=== PATIENT | female | born 1980 | race Caucasian/White ===

== ENCOUNTER 2019-12-13 13:01 | Emergency (ER) | payer OTHER ==
[2019-12-13] MEDS ORDERED: Ketorolac 60 MG/2 ML SDV IM ONE (13:41)
--- NOTE | 2019-12-13 13:43 | EDM.PDOC ---
ED HPI GENERAL MEDICAL PROBLEM - General Chief Complaint: Lower Extremity Injury/Pain Stated Complaint: RIGHT ANKLE INJURY Time Seen by Provider: 12/13/19 13:38 Source of Information: Reports: Patient, RN Notes Reviewed History Limitations: Reports: No Limitations - History of Present Illness INITIAL COMMENTS - FREE TEXT/NARRATIVE: 39-year-old female presents emergency department a complaint of pain in her right ankle she twisted it earlier today just prior to presentation to the emergency department, she heard a loud pop and now has difficulty bearing weight on that leg Right Ankle Pain Score (Numeric/FACES): 7 - Related Data Allergies Allergy/AdvReac Type Severity Reaction Status Date / Time No Known Allergies Allergy Verified 12/13/19 13:33 Home Meds: Home Meds FLUoxetine HCl [Prozac] 20 mg PO DAILY 12/13/19 [History] Levothyroxine 25 mcg PO ACBREAKFAST 12/13/19 [History] Past Medical History [employer] History: Reports: - Infectious Disease History Infectious Disease History: Reports: Chicken Pox - Past Surgical History GI Surgical History: Reports: Cholecystectomy Social & Family History - Tobacco Use Smoking Status *Q: Never Smoker - Caffeine Use Caffeine Use: Reports: Coffee, Soda, Tea - Recreational Drug Use Recreational Drug Use: No Review of Systems - Review of Systems Review Of Systems: See Below Constitutional: Reports: No Symptoms Musculoskeletal: Reports: Joint Pain (Ankle pain) Skin: Reports: Bruising Neurological: Reports: No Symptoms ED EXAM, GENERAL - Physical Exam Exam: See Below Free Text/Narrative:: Examination the left ankle I do appreciate some edema a small amount of ecchymosis is noted on the lateral aspect over the lateral malleolus pedal pulses +2 she will not tolerate any bit of exam tilt test or drawer test produces pain Exam Limited By: No Limitations General Appearance: Alert, WD/WN, No Apparent Distress ED TRAUMA EXTREMITY PROCEDURES - Splinting Right Lower Extremity Splint Site: Ankle Pre-Procedure NV Status: Normal Post-Procedure NV Status: Normal Splint Material: Fiberglass Splint Design: Stirrup, Posterior Applied & Form Fitted By: Provider, Nurse Provider Post-Splint Application NV Check: NV Status Normal, Good Position Complications: No Course - Vital Signs Last Recorded V/S: Last Vital Signs Temp 97.3 F 12/13/19 13:30 Pulse 72 12/13/19 13:30 Resp 16 12/13/19 13:30 BP 126/75 12/13/19 13:30 Pulse Ox 100 12/13/19 13:30 - Orders/Labs/Meds Meds: Medications Discontinued Medications Generic Name Dose Route Start Last Admin Trade Name South PRN Reason Stop Dose Admin Ketorolac Tromethamine 60 mg 12/13/19 13:41 12/13/19 13:58 Toradol IM 12/13/19 13:42 60 mg ONETIME ONE Administration Departure - Departure Time of Disposition: 15:46 Disposition: Home, Self-Care 01 Condition: Fair Clinical Impression: Fracture of distal end of tibia with fibula Qualifiers: Encounter type: initial encounter Fracture type: closed Laterality: right Qualified Code(s): S82.831A - Other fracture of upper and lower end of right fibula, initial encounter for closed fracture; S82.301A - Unspecified fracture of lower end of right tibia, initial encounter for closed fracture - Discharge Information Instructions: Tibial Fracture, Adult Referrals: PCP,None [Primary Care Provider] - Forms: ED Department Discharge Additional Instructions: Use ibuprofen for baseline pain control, use Percocet as needed for breakthrough pain, please follow-up with your orthopedic provider upon return home Sepsis Event Note - Evaluation Sepsis Screening Result: No Definite Risk - Focused Exam Vital Signs: Vital Signs Temp Pulse Resp BP Pulse Ox 12/13/19 13:30 97.3 F 72 16 126/75 100 Date Exam was Performed: 12/13/19 Time Exam was Performed: 15:45 - Assessment/Plan Plan: Assessment Acuity = acute Site and laterality = distal tib-fib fracture right side closed Etiology = secondary to trauma Manifestations = pain Location of injury = Home Lab values = x-ray describes a fracture above Plan Placed in a posterior splint with a stirrup crutches provided prescription written for Percocet 5/325 1 tab p.o. 3 times daily PRN total #10 she will follow-up with orthopedics upon return home This note was dictated using [employer] voice recognition software please call with any questions on syntax or grammar.
--- NOTE | 2019-12-13 15:12 | CR ---
Ankle Min 3V Rt CLINICAL HISTORY: Fall, pain FINDINGS: There is a comminuted fracture of the distal tibia extending in the medial malleolus and articular surface. There is a comminuted minimally displaced fracture of the distal fibula. The ankle mortise is asymmetric with widening medially. IMPRESSION: Distal tibial fibular fracture
== END 2019-12-13 15:55 | disposition home or self-care (01) ==
LOC: JP.ED 13:01
DX: S82.831A Other fracture of upper and lower end of right fibula, initial encounter for closed fracture (principal); S82.301A Unspecified fracture of lower end of right tibia, initial encounter for closed fracture; Z79.899 Other long term (current) drug therapy; X50.1XXA Overexertion from prolonged static or awkward postures, initial encounter
CPT/HCPCS: 29515; 73610; 96372; 99283; J1885